=== PATIENT | female | born 1955 | race Caucasian/White ===

== ENCOUNTER 2018-01-28 19:38 | Observation (INO) | payer MEDICAID ==
[~2018-01-28] VITALS: Ht 154.9 cm; Wt 70.4 kg
[2018-01-28 19:43] VITALS: Ht 154.9 cm; Wt 70.4 kg
[2018-01-28 20:36] LABS: BASOPHIL % 0.7 % (0-2); PLATELET COUNT 306 x10^3mcL (130-400); RED CELL DISTRIBUTION WIDTH 13.5 % (11.5-14.5)
[2018-01-28 20:41] LABS: CALCIUM 8.5 mg/dL (8.5-10.1); CARBON DIOXIDE 27.9 mmol/L (21-32); CHLORIDE SERUM 104 mmol/L (98-107); CREATININE SERUM 0.9 mg/dL (0.6-1.0); GFR1 > 60 mL/min; GLUCOSE SERUM 92 mg/dL (74-106); POTASSIUM SERUM 3.5 mmol/L (3.5-5.1); SODIUM SERUM 135 mmol/L (136-145)
[2018-01-28 20:45] LABS: ALKALINE PHOSPHATASE 104 U/L (46-116); ALT/SGPT 49 U/L (14-59); AST/SGOT 40 U/L (15-37); BILIRUBIN TOTAL 0.38 mg/dL (0.20-1.00); CHOLESTEROL 145 mg/dL (<200); TOTAL PROTEIN, SERUM 6.8 g/dL (6.4-8.2)
[2018-01-28 20:46] LABS: ALBUMIN 3.2 g/dL (3.4-5.0)
[2018-01-28 23:53] VITALS: BP 110/56
[2018-01-29] VITALS (7 sets, daily range): BP systolic 88–109; BP diastolic 46–57
[2018-01-29 07:30] LABS: AMPHETAMINE QUAL UR NONE DETECTED (NEG <=1000)
[2018-01-30 05:11] VITALS: BP 95/62
== END 2018-01-30 08:44 | disposition home or self-care (01) | DRG 52 ==
LOC: ED 19:38 → DU 22:28
PROVIDERS: Emergency Medicine; Internal Medicine Pulmonary Disease
DX: G45.4 Transient global amnesia (principal); E66.9 Obesity, unspecified; G89.29 Other chronic pain; M54.5 Low back pain
CPT/HCPCS: 83880; G0378; G0480; J1650; J1885; J7030